=== PATIENT | female | born 1945 | race Asian ===

== ENCOUNTER 2017-06-22 06:01 | Day surgery (SDC) | payer MEDICARE, OTHER ==
[~2017-06-22] VITALS: Ht 149.9 cm; Wt 67.3 kg
[~2017-06-22 06:01] MED LIST: SODIUM CHLORIDE 0.9% 1,000 ML IV ONE
[2017-06-22] MEDS ORDERED: EPINEPHrine 1:1,000 [1 MG/ML] AMP IM ONE (06:02)
[2017-06-22] MEDS ORDERED: LIDOCAINE HCL 2% 5 ML JELLY TP ONE (06:02)
[2017-06-22] MEDS ORDERED: LIDOCAINE HCL 4% 50 ML SOLUTION TP ONE (06:02)
[2017-06-22] MEDS ORDERED: ALBUTEROL SULFATE 2.5 MG/0.5 ML NEB SOLUTION NEB ONE (06:02)
[2017-06-22] MEDS ORDERED: BENZOCAINE 20% 50 MCG/SPRAY 57 GM TP ONE (06:02)
[2017-06-22] MEDS ORDERED: SODIUM CHLORIDE 0.9% 1,000 ML IV ONE (06:17)
[2017-06-22 06:57] LABS: GLUCOMETER DEV NAME(LOC) SDS 5; GLUCOSE,POINT OF CARE 95 MG/DL (70-110)
[2017-06-22] MEDS ORDERED: OMEP20 PO (07:11)
[2017-06-22] MEDS ORDERED: BENZ-51 PO (07:11)
[2017-06-22] MEDS ORDERED: FERR-89 PO (07:11)
[2017-06-22] MEDS ORDERED: ASPI-1182 PO (07:11)
[2017-06-22] MEDS ORDERED: METF500T4 PO (07:11)
[2017-06-22] MEDS ORDERED: IBUP-2070 PO (07:11)
[2017-06-22] MEDS ORDERED: SIMV-260 PO (07:11)
[2017-06-22] MEDS ORDERED: ATEN25TA PO (07:11)
[2017-06-22] MEDS ORDERED: LOSA1TAB40 PO (07:11)
[2017-06-22] MEDS ORDERED: INSLAN SQ (07:11)
[2017-06-22] MEDS ORDERED: MIDAZOLAM HCL 2 MG/2 ML VIAL ONE (07:37)
[2017-06-22] MEDS ORDERED: FentaNYL CITRATE-PF 100 MCG/2 ML VIAL ONE (07:37)
[2017-06-22] MEDS ORDERED: MethylPREDNISolone SOD SUCC 125 MG/2 ML VIAL IVP ONE ×2 (09:15)
[2017-06-22] MEDS ORDERED: MethylPREDNISolone SOD SUCC 125 MG/2 ML VIAL ONE (09:25)
[2017-06-22] MEDS ORDERED: PROMETHAZINE HCL/CODEINE 6.25-10MG/5ML SYRUP UDCUP PO ONE (09:30)
[2017-06-22] MEDS ORDERED: OXYGEN THERAPY IH SCH ×2 (20:00)
== END 2017-06-22 10:50 | disposition home or self-care (01) ==
LOC: SURGERY 06:01 → EDSEX 08:30 → SURGERY 10:50
PROVIDERS: ATTEND Internal Medicine Critical Care Medicine
DX: J38.4 Edema of larynx (principal); B37.0 Candidal stomatitis; J44.9 Chronic obstructive pulmonary disease, unspecified; I10 Essential (primary) hypertension; Z86.73 Personal history of transient ischemic attack (TIA), and cerebral infarction without residual deficits; E11.9 Type 2 diabetes mellitus without complications; Z79.82 Long term (current) use of aspirin; Z79.84 Long term (current) use of oral hypoglycemic drugs; Z79.4 Long term (current) use of insulin; Z79.1 Long term (current) use of non-steroidal anti-inflammatories (NSAID)
CPT/HCPCS: 31623; 31624; 31625; 36415; 71045; 82962; 87015; 87070; 87205; 87220; 88108; 88305; 88312; 88342; J0171; J2250; J2930; J3010; J7030; 88341